=== PATIENT | male | born 1970 | race African-American/Black ===

== ENCOUNTER 2016-10-01 17:49 | Emergency (ER) | payer OTHER ==
[~2016-10-01 17:49] MED LIST: IBUPROFEN800 MG PO; NO MEDICATIONS
== END 2016-10-01 17:50 | disposition home or self-care (01) ==
LOC: SED 17:49
DX: L29.9 Pruritus, unspecified (principal); T78.40XA Allergy, unspecified, initial encounter
CPT/HCPCS: 99282